=== PATIENT | female | born 1945 | race Caucasian/White ===

== ENCOUNTER 2017-10-05 07:11 | Outpatient (CLI) | payer OTHER | END 2017-10-05 08:00 | disposition home or self-care (01) | LOC: NUCLEAR 07:11 | DX: R07.89 Other chest pain (principal); I25.10 Atherosclerotic heart disease of native coronary artery without angina pectoris | CPT/HCPCS: 78452; 93017; A9500 ==

== ENCOUNTER 2020-06-23 12:28 | Outpatient (CLI) | payer OTHER | END 2020-06-23 12:36 | disposition home or self-care (01) | LOC: LAB 12:28 | PROVIDERS: ATTEND Surgery | DX: Z20.822 Contact with and (suspected) exposure to COVID-19 (principal) ==

== ENCOUNTER 2020-06-29 06:50 | Day surgery (SDC) | payer OTHER | END 2020-06-29 12:50 | disposition home or self-care (01) | LOC: AMB-ENDOS 06:50 | PROVIDERS: ATTEND Surgery | DX: D12.2 Benign neoplasm of ascending colon (principal); D12.3 Benign neoplasm of transverse colon; Z20.822 Contact with and (suspected) exposure to COVID-19 ==

== ENCOUNTER 2021-03-12 09:24 | Emergency (ER) | payer OTHER ==
[~2021-03-12] VITALS: Ht 157.5 cm; Wt 59.4 kg
[2021-03-12] MEDS ORDERED: PEPCID AC20 MG (09:42)
[2021-03-12] MEDS ORDERED: PROTONIX40 MG (09:42)
[2021-03-12] MEDS ORDERED: TRANXENE T-TAB7.5 MG (09:43)
[2021-03-12] MEDS ORDERED: TENORMIN50 M1 (09:43)
[2021-03-12] MEDS ORDERED: GAS RELIEF40 MG/0.6 (09:44)
[2021-03-12] MEDS ORDERED: LEVO-T50 MCG (09:44)
[2021-03-12] MEDS ORDERED: VASOTEC10 MG (09:44)
== END 2021-03-12 12:08 | disposition home or self-care (01) ==
LOC: ER 09:24
DX: T24.202A Burn of second degree of unspecified site of left lower limb, except ankle and foot, initial encounter (principal); T24.201A Burn of second degree of unspecified site of right lower limb, except ankle and foot, initial encounter; X08.8XXA Exposure to other specified smoke, fire and flames, initial encounter; W40.1XXA Explosion of explosive gases, initial encounter; Y93.89 Activity, other specified; Y92.89 Other specified places as the place of occurrence of the external cause; Y99.8 Other external cause status

== ENCOUNTER 2022-08-22 18:23 | Emergency (ER) | payer OTHER ==
[~2022-08-22] VITALS: Ht 152.4 cm; Wt 61.2 kg
[~2022-08-22 18:23] MED LIST: GAS RELIEF40 MG/0.6; LEVO-T50 MCG; PEPCID AC20 MG; PROTONIX40 MG; TENORMIN50 M1; TRANXENE T-TAB7.5 MG; VASOTEC10 MG
[2022-08-22] MEDS ORDERED: CRESTOR5 MG PO (19:14)
[2022-08-22] MEDS ORDERED: TRAMADOL HCL E100 M1 PO (19:14)
[2022-08-22] MEDS ORDERED: APRESOLINE 10MG10 MG PO (19:15)
== END 2022-08-22 22:21 | disposition home or self-care (01) ==
LOC: ER 18:23
DX: I10 Essential (primary) hypertension (principal); Z91.013 Allergy to seafood

== ENCOUNTER 2022-08-24 08:33 | Outpatient (CLI) | payer OTHER ==
[~2022-08-24 08:33] MED LIST changes: +APRESOLINE 10MG10 MG PO; +CRESTOR5 MG PO; +TRAMADOL HCL E100 M1 PO
== END 2022-08-24 08:38 | disposition home or self-care (01) ==
LOC: NUCLEAR 08:33
DX: K30 Functional dyspepsia (principal)
CPT/HCPCS: 78227; A9537; J2805

== ENCOUNTER 2024-01-17 12:16 | Outpatient (CLI) | payer OTHER | END 2024-01-17 12:20 | disposition home or self-care (01) | LOC: RAD 12:16 | PROVIDERS: ATTEND Internal Medicine | DX: M54.50 Low back pain, unspecified (principal) ==